=== PATIENT | female | born 1995 | race Caucasian/White ===

== ENCOUNTER 2017-06-08 14:04 | Emergency (ER) | payer BC ==
[~2017-06-08] VITALS: Ht 160 cm; Wt 72.6 kg
[~2017-06-08 14:04] MED LIST: AUG500 PO; LOR5 PO; PRE20 PO
--- NOTE | 2017-06-08 14:08 | ER Report ---
History and Physical Time Seen By MD: 14:07 Hx. of Stated Complaint: Fall onto right hand/wrist while snowboarding. No with pain at right wrist. No other complaints/injuries. No LOC. HPI/ROS Fall onto right wrist while snowboarding. Now with pain in right wrist/hand. No other injuries or complaints. Was wearing a helmet. No head trauma or LOC. Remainder of the 14 system rev: Yes Allergies: Coded Allergies: No Known Allergies (Verified Allergy, Mild, 06/08/17) azithromycin (Verified Allergy, Unknown, 06/08/17) Home Meds Active Scripts Ibuprofen (IBUPROFEN) 600 Mg Tablet, 1 TAB PO Q6H for 7 Days, #20 TAB Prov:BEATA WELSH MD 06/08/17 Hydrocodone Bit/Acetaminophen (HYDROCODON-ACETAMINOPHEN 5-325) 1 Each Tablet, 1 EACH PO Q6H for 5 Days, #15 TAB Prov:BEATA WELSH MD 06/08/17 Reported Medications Fexofenadine Hcl (CATARINO ALLERGY) 60 Mg Tablet, 30 MG PO BID 06/08/17 Norgestimate-Ethinyl Estradiol (SPRINTEC) 1 Each Tablet, 1 EACH PO 06/08/17 Reviewed Nurses Notes: Yes Old Medical Records Reviewed: No Hx Smoking: No Smoking Status: Never Smoker Exposure to Second Hand Smoke?: No Hx Substance Use Disorder: No Hx Alcohol Use: No Constitutional Physical Exam GE: Well appearing female in NAD. Awake and alert HEENT: NCAT, PERRL, EOMI CV: RRR, no m/r/g, pulses symmetric Lungs: cta b/l Abd: soft NTND MSK: Obvious deformity and decreased ROM at the right wrist, no TTP of the right elbow or shoulder, n/v in tact Neuro: strength/sensation grossly in tact, normal gait Medical Decision Making EKG/Imaging Monitor Interpretation: Normal Sinus Rhythm Imaging Displaced fracture of the distal radius, interpreted by me ED Course/Re-evaluation Clinical Indication for ER IV: IV Access ED Course Isolated trauma to right UE. Sustained a displaced closed distal radius fracture while snowboarding. Fracture reduced and splinted using conscious sedation. Post reduction xrays show almost complete anatomic alignment of the radius. N/V in tact both before and after the reduction and splint placed. Given pain meds, and will follow up this week with ortho for definitive care. Procedure Procedure: Procedural sedation. A pre-sedation evaluation was completed on the patient at 1500. Patient is an appropriate candidate for procedural sedation. The risks of the sedation were discussed with the patient. A time out was completed. The patient was reevaluated immediately prior to initiation of sedation. The patient was sedated with Propofol. The patient was monitored with continuous pulse oximetry and monitor tech. There were no complications and no significant hypoxemia. I remained at the bedside for the sedation. The total time I spent in the procedural sedation was 15 minutes. Post sedation evaluation: Patient was alert and cooperative, hemodynamically stable with appropriate respiratory status, temperature and pain control without ongoing nausea and vomiting. Procedure: Distal radius fracture reduction: The radius was reduced in the usual fashion without complications. Post reduction the patient's neurovascular exam is normal. Post reduction x-ray demonstrates reduction of the bone to a near anatomic position. The procedure was performed by myself. Decision to Disposition Date: Jun 08, 2017 Decision to Disposition Time: 15:54 Depart Departure Latest Vital Signs Impression: Primary Impression: Radius distal fracture Condition: Improved Disposition: HOME OR SELF-CARE Referrals: BRANT GARCÍA MD New Scripts Ibuprofen (IBUPROFEN) 600 Mg Tablet 1 TAB PO Q6H for 7 Days, #20 TAB Prov: BEATA WELSH MD 06/08/17 Hydrocodone Bit/Acetaminophen (HYDROCODON-ACETAMINOPHEN 5-325) 1 Each Tablet 1 EACH PO Q6H for 5 Days, #15 TAB Prov: BEATA WELSH MD 06/08/17 Patient Instructions: Wrist Fracture in Adults (ED) Problem Qualifiers Primary Impression: Radius distal fracture Encounter type: initial encounter Fracture type: closed Fracture morphology : unspecified fracture morphology Laterality: right Qualified Codes: S52.501A - Unspecified fracture of the lower end of right radius, initial encounter for closed fracture BEATA WELSH MD Jun 08, 2017 14:08
[2017-06-08] MEDS ORDERED: FEXO-72 PO (14:14)
[2017-06-08] MEDS ORDERED: NORG1TAB74 PO (14:14)
[2017-06-08] MEDS ORDERED: IBUPROFEN 600 MG TAB PO ONE (14:15)
[2017-06-08] MEDS ORDERED: PROPOFOL EMUL 10MG/ML 20 ML VL IVP ONE (14:55)
--- NOTE | 2017-06-08 14:59 | RADIOLOGY IMAGING REPORT ---
FACILITY: [facility] - [place] PATIENT NAME: Orlando Edgar : 1995 MR: [id number] V: [id number] EXAM DATE: ORDERING PHYSICIAN: BEATA WELSH TECHNOLOGIST: Location: [facility] Patient: Orlando Edgar : 1995 Visit/Account:[id number] Date of Sevice: 06/08/2017 INDICATION: snowboard injury to wrist. DATE: 06/08/2017 2:48 PM. TECHNIQUE: FOREARM RIGHT, WRIST RIGHT MIN 3 VIEW COMPARISON: None FINDINGS: Forearm: Proximal radius and ulna are intact. Wrist: A transverse fracture of the distal radius is displaced with the large articular fragment posi tion dorsally with respect to the radial shaft. There is dorsal tilt of the radial articular surface. IMPRESSION: Displaced distal radial fracture as above. Report Dictated By: Tom Mckeon MD at 06/08/2017 2:48 PM Report E-Signed By: Tom Mckeon MD at 06/08/2017 2:54 PM WSN:[id number]
--- NOTE | 2017-06-08 14:59 | RADIOLOGY IMAGING REPORT ---
[place]AC[place] [facility] [place]IENT NAME: Orlando Edgar : 1995 MR: [id number] V: [id number] EXAM DATE: ORDERING PHYSICIAN: BEATA WELSH TECHNOLOGIST: Location: [facility] [place] Patient: Orlando Edgar : 1995 Visit/Account:[id number] Date of Sevice: 06/08/2017 INDICATION: snowboard injury to wrist. DATE: 06/08/2017 2:48 PM. TECHNIQUE: FOREARM RIGHT, WRIST RIGHT MIN 3 VIEW COMPARISON: None FINDINGS: Forearm: Proximal radius and ulna are intact. Wrist: A transverse fracture of the distal radius is displaced with the large articular fragment posi tion dorsally with respect to the radial shaft. There is dorsal tilt of the radial articular surface. IMPRESSION: Displaced distal radial fracture as above. Report Dictated By: Tom Mckeon MD at 06/08/2017 2:48 PM Report E-Signed By: Tom Mckeon MD at 06/08/2017 2:54 PM WSN:[id number]
--- NOTE | 2017-06-08 15:42 | RADIOLOGY IMAGING REPORT ---
FACILITY: [facility] PATIENT NAME: Orlando Edgar : 1995 MR: [id number] V: [id number] EXAM DATE: ORDERING PHYSICIAN: BEATA WELSH TECHNOLOGIST: Location: [facility] Patient: Orlando Edgar : 1995 Visit/Account:[id number] Date of Sevice: 06/08/2017 INDICATION: post reduction. DATE: 06/08/2017 3:36 PM. TECHNIQUE: WRIST RIGHT 2 VIEW COMPARISON: Prereduction radiographs FINDINGS: Alignment has improved with mild lateral offset of the distal radial fracture fragment. The radial articular surface is now in near neutral alignment. The fracture does extend obliquely to the ulnar side of the radial articular surface. IMPRESSION: Improved alignment of the distal radial fracture. Report Dictated By: Tom Mckeon MD at 06/08/2017 3:36 PM Report E-Signed By: Tom Mckeon MD at 06/08/2017 3:39 PM WSN:[id number]
[2017-06-08] MEDS ORDERED: MORPHINE 4 MG/ML SYR IVP ONE (15:45)
[2017-06-08] MEDS ORDERED: HYDR-385 PO (16:09)
[2017-06-08] MEDS ORDERED: IBUP600T22 PO (16:09)
[2017-06-08 16:25] VITALS: BP 148/87
[2017-06-08] MEDS ORDERED: NS(*) 0.9% 1000 ML BAG 1,000 ML IV ONE (16:55)
== END 2017-06-08 16:35 | disposition home or self-care (01) ==
LOC: ER 14:22
DX: S52.501A Unspecified fracture of the lower end of right radius, initial encounter for closed fracture (principal); W00.0XXA Fall on same level due to ice and snow, initial encounter; Y93.23 Activity, snow (alpine) (downhill) skiing, snowboarding, sledding, tobogganing and snow tubing
CPT/HCPCS: 25605; 73090; 73100; 73110; 96361; 96374; 99284; A4565; J2270; J2704; J7030

== ENCOUNTER → 2017-08-15 | Outpatient (REF) | payer BC ==
[~2017-08-15] MED LIST changes: +FEXO-72 PO; +HYDR-385 PO; +IBUP600T22 PO; +NORG1TAB74 PO
[2017-08-15 10:11] LABS: PLATELET COUNT, AUTOMATED 350 K/uL (150-450)
== END ==
PROVIDERS: ATTEND Nurse Practitioner Family
DX: R10.9 Unspecified abdominal pain (principal)
CPT/HCPCS: 82040; 82150; 82247; 82310; 82374; 82435; 82565; 82947; 83690; 84075; 84132; 84155; 84295; 84450; 84460; 84520; 85025